=== PATIENT | male | born 1965 | race Caucasian/White ===

== ENCOUNTER 2016-10-06 06:12 | Day surgery (SDC) | payer BC ==
--- NOTE | ~2016-10-06 | EGD ---
EGD REPORT [facility] [address] [place] [address] NAME: LORI HASSAN : [birth year] [place]US : [place] [facility] [place] [id number] AGE: 51 ADM/REG DATE : 10/06/16 MR#: [id number] REPORT SERV DATE: 10/06/16 DICTATED BY: ANDRE TORREZ DATE: 10/06/16 REPORT STATUS : Draft TRANSCRIBED BY: [employer] DATE: 10/06/16 [facility] Center Patient Name: Lori Hassan Date of : 1965 Attending MD: ANDRE TORREZ MD Procedure Date No Time: 10/06/2016 Procedure: Upper GI endoscopy Indications: Dyspepsia Referring MD: LORI BISWAS Medicines: Propofol per Anesthesia Procedure: Pre-Anesthesia Assessment: - ASA Grade Assessment: III - A patient with severe systemic disease. After obtaining informed consent, the endoscope was passed under direct vision. Throughout the procedure, the patient's blood pressure, pulse, and oxygen saturations were monitored continuously. The GIF [id number] [id number] was introduced through the mouth, and advanced to the second part of duodenum. The upper GI endoscopy was accomplished without difficulty. The patient tolerated the procedure well. Findings: Pt had ines en y gastrojejunostomy Small remnant gastric pouch was seen. LA Grade B (one or more mucosal breaks greater than 5 mm, not extending between the tops of two mucosal folds) esophagitis with no bleeding was found. Diffuse mild inflammation characterized by erosions and erythema was found in the stomach. The examined jejunum was normal. Procedure Code(s): --- Professional --- 60073, Esophagogastroduodenoscopy, flexible, transoral; diagnostic, including collection of specimen(s) by brushing or washing, when performed (separate procedure) Diagnosis Code(s): --- Professional --- K30, Functional dyspepsia CPT copyright 2013 [employer]. All rights reserved. The codes documented in this report are preliminary and upon family literacy coordinator review may be revised to meet current compliance requirements. EGD REPORT [facility] [address] [address] NAME: LORI HASSAN : [birth year] [place] : [place] [facility] [place]#: [id number] AGE: 51 ADM/REG DATE : 10/06/16 MR#: [id number] REPORT SERV DATE: 10/06/16 DICTATED BY: ANDRE TORREZ. DATE: 10/06/16 REPORT STATUS : Draft TRANSCRIBED BY: [employer] DATE: 10/06/16 Andre Torrez MD ANDRE TORREZ MD 10/06/2016 7:40 AM This report has been signed electronically. Number of Addenda: 0 Note Initiated On: 10/06/2016 7:31 AM Scope Withdrawal Time 0 hours 0 minutes 0 seconds [address] [id number]
--- NOTE | ~2016-10-06 | EGD ---
EGD REPORT [facility] [address] [address] NAME: LORI HASSAN : [birth year] STATUS : [facility] [place] PAT#: [id number] AGE: 51 ADM/REG DATE : 10/06/16 MR#: [id number] REPORT SERV DATE: 10/06/16 DICTATED BY: ANDRE TORREZ DATE: 10/06/16 REPORT STATUS : Draft TRANSCRIBED BY: [facility] DATE: 10/06/16 Endoscopy Center Patient Name: Lori Hassan Date of : 1965 Attending MD: ANDRE TORREZ MD Procedure Date No Time: 10/06/2016 Procedure: Colonoscopy Indications: Abdominal pain in the left upper quadrant, Abdominal pain in the right lower quadrant Referring MD: LORI BISWAS Medicines: Propofol per Anesthesia Complications: No immediate complications. Procedure: Pre-Anesthesia Assessment: - ASA Grade Assessment: III - A patient with severe systemic disease. After I obtained informed consent, the scope was passed under direct vision. Throughout the procedure, the patient's blood pressure, pulse, and oxygen saturations were monitored continuously. The CF [id number] was introduced through the anus and advanced to the cecum, identified by appendiceal orifice and ileocecal valve. The colonoscopy was performed without difficulty. The patient tolerated the procedure well. The quality of the bowel preparation was good. The appendiceal orifice was photographed. The were photographed. The entire colon was examined. The colonoscopy was performed without difficulty. The patient tolerated the procedure well. Findings: A sessile polyp was found in the ascending colon. The polyp was 5 mm in size. The polyp was removed with a cold biopsy forceps. Resection and retrieval were complete. A sessile polyp was found in the descending colon. The polyp was 5 mm in size. The polyp was removed with a cold biopsy forceps. Resection and retrieval were complete. Multiple medium-mouthed diverticula were found in the recto-sigmoid colon and in the sigmoid colon. Internal hemorrhoids were found during retroflexion and were Grade I (internal hemorrhoids that do not prolapse). The rest of the colon was normal. Impression: - One 5 mm polyp in the ascending colon. Resected and retrieved. - One 5 mm polyp in the descending colon. Resected and retrieved. EGD REPORT [address] [address] NAME: LORI HASSAN : [birth year] STATUS : REG [facility] [place] PAT#: [id number] AGE: 51 ADM/REG DATE : 10/06/16 MR#: [id number] REPORT SERV DATE: 10/06/16 DICTATED BY: ANDRE TORREZ DATE: 10/06/16 REPORT STATUS : Draft TRANSCRIBED BY: [employer] DATE: 10/06/16 - Diverticulosis in the recto-sigmoid colon and in the sigmoid colon. - Internal hemorrhoids. Recommendation: - Discharge patient to home (ambulatory). Procedure Code(s): --- Professional --- 79702, Colonoscopy, flexible, proximal to splenic flexure; with biopsy, single or multiple Diagnosis Code(s): --- Professional --- D12.4, Benign neoplasm of descending colon D12.2, Benign neoplasm of ascending colon K64.0, First degree hemorrhoids K57.30, Diverticulosis of large intestine without perforation or abscess without bleeding R10.12, Left upper quadrant pain R10.31, Right lower quadrant pain CPT copyright 2013 [employer]. All rights reserved. The codes documented in this report are preliminary and upon warehouse team member review may be revised to meet current compliance requirements. Andre Torrez MD ANDRE TORREZ MD 10/06/2016 8:01 AM This report has been signed electronically. Number of Addenda: 0 Note Initiated On: 10/06/2016 7:31 AM Scope Withdrawal Time 0 hours 11 minutes 3 seconds [address] [id number]
--- NOTE | ~2016-10-06 | EGD ---
EGD REPORT [facility] [address] [place]. [address] NAME: LORI HASSAN : [birth year] STATUS : [place] [facility] [place] PAT#: [id number] AGE: 51 ADM/REG DATE : 10/06/16 MR#: [id number] REPORT SERV DATE: 10/06/16 DICTATED BY: ANDRE TORREZ DATE: 10/06/16 REPORT STATUS : Draft TRANSCRIBED BY: [employer] DATE: 10/06/16 Endoscopy Center Patient Name: Lori Hassan Date of : 1965 Attending MD: ANDRE TORREZ MD Procedure Date No Time: 10/06/2016 Procedure: Upper GI endoscopy Indications: Dyspepsia Referring MD: LORI BISWAS Medicines: Propofol per Anesthesia Procedure: Pre-Anesthesia Assessment: - ASA Grade Assessment: III - A patient with severe systemic disease. After obtaining informed consent, the endoscope was passed under direct vision. Throughout the procedure, the patient's blood pressure, pulse, and oxygen saturations were monitored continuously. The GIF H190 [id number] was introduced through the mouth, and advanced to the second part of duodenum. The upper GI endoscopy was accomplished without difficulty. The patient tolerated the procedure well. Findings: Pt had ines en y gastrojejunostomy Small remnant gastric pouch was seen. LA Grade B (one or more mucosal breaks greater than 5 mm, not extending between the tops of two mucosal folds) esophagitis with no bleeding was found. Diffuse mild inflammation characterized by erosions and erythema was found in the stomach. The examined jejunum was normal. Procedure Code(s): --- Professional --- 74138, Esophagogastroduodenoscopy, flexible, transoral; diagnostic, including collection of specimen(s) by brushing or washing, when performed (separate procedure) Diagnosis Code(s): --- Professional --- K30, Functional dyspepsia CPT copyright 2013 [employer]. All rights reserved. The codes documented in this report are preliminary and upon corporate safety director review may be revised to meet current compliance requirements. EGD REPORT [facility] [address] [address] NAME: LORI HASSAN : [birth year] STATUS : REG [facility] [place] PAT#: [id number] AGE: 51 ADM/REG DATE : 10/06/16 MR#: [id number] REPORT SERV DATE: 10/06/16 DICTATED BY: ANDRE TORREZ. DATE: 10/06/16 REPORT STATUS : Draft TRANSCRIBED BY: [employer] DATE: 10/06/16 Andre Torrez MD ANDRE TORREZ MD 10/06/2016 7:40 AM This report has been signed electronically. Number of Addenda: 0 Note Initiated On: 10/06/2016 7:31 AM Scope Withdrawal Time 0 hours 0 minutes 0 seconds [address] [id number]
[~2016-10-06 06:12] MED LIST: NORV5 PO; PRIN20 PO; PROTONIX PO; ULTRAM50 PO; Z300 PO
== END 2016-10-06 23:59 | disposition home or self-care (01) ==
LOC: DMU 06:12
PROVIDERS: Internal Medicine Gastroenterology
PROC: 0DBM8ZX Excision of Descending Colon, Via Natural or Artificial Opening Endoscopic, Diagnostic (ICD-10-PCS; 2016-10-06)
PROC: 0DJ08ZZ Inspection of Upper Intestinal Tract, Via Natural or Artificial Opening Endoscopic (ICD-10-PCS; principal; 2016-10-06 07:30)
PROC: 0DBK8ZX Excision of Ascending Colon, Via Natural or Artificial Opening Endoscopic, Diagnostic (ICD-10-PCS; 2016-10-06 07:30)
DX: D12.2 Benign neoplasm of ascending colon (principal); D12.4 Benign neoplasm of descending colon; K30 Functional dyspepsia; K64.0 First degree hemorrhoids; K57.30 Diverticulosis of large intestine without perforation or abscess without bleeding; K21.9 Gastro-esophageal reflux disease without esophagitis; M10.9 Gout, unspecified; I10 Essential (primary) hypertension; Z79.899 Other long term (current) drug therapy; Z98.84 Bariatric surgery status; Z98.890 Other specified postprocedural states
CPT/HCPCS: 88305